=== PATIENT | male | born 2000 | race Caucasian/White ===

== ENCOUNTER 2022-04-26 12:58 | Emergency (ER) | payer MEDICAID, OTHER ==
[~2022-04-26] VITALS: Ht 177.8 cm; Wt 102.2 kg
[2022-04-26] MEDS ORDERED: ONDANSETRON HCL 4 MG/2 ML VIAL IV ONE (14:45)
[2022-04-26] MEDS ORDERED: MORPHINE SULFATE 4 MG/ML SYR/VIAL IV ONE (14:45)
[2022-04-26 16:00] VITALS: BP 110/55
[2022-04-26] MEDS ORDERED: HYDR-4902 PO (17:12)
== END 2022-04-26 17:38 | disposition home or self-care (01) ==
LOC: ER 12:58
DX: S39.012A Strain of muscle, fascia and tendon of lower back, initial encounter (principal); S70.02XA Contusion of left hip, initial encounter; Z79.899 Other long term (current) drug therapy; Z88.8 Allergy status to other drugs, medicaments and biological substances; V86.56XA Driver of dirt bike or motor/cross bike injured in nontraffic accident, initial encounter; Y93.89 Activity, other specified; Y92.89 Other specified places as the place of occurrence of the external cause; Y99.8 Other external cause status
CPT/HCPCS: 72131; 73700; 96374; 96375; 99284; J2270; J2405

== ENCOUNTER 2023-03-19 15:23 | Emergency (ER) | payer MEDICAID ==
[~2023-03-19] VITALS: Ht 177.8 cm; Wt 90.4 kg
[~2023-03-19 15:23] MED LIST: HYDR-4902 PO
[2023-03-19 16:58] VITALS: BP 132/90
[2023-03-19] MEDS ORDERED: HYDROcodone-ACET 10/325MG TAB PO ONE (17:30)
[2023-03-19] MEDS ORDERED: KETOROLAC TROMETH 60MG/2ML VIAL IM ONE (17:30)
[2023-03-19] MEDS ORDERED: HYDR-4902 PO ×3 (17:33→18:48)
[2023-03-19] MEDS ORDERED: IBUP-1455 PO ×2 (17:33)
[2023-03-19] MEDS ORDERED: IBUP-1456 PO (18:48)
== END 2023-03-19 18:01 | disposition home or self-care (01) ==
LOC: ER 15:23
DX: S50.01XA Contusion of right elbow, initial encounter (principal); F12.10 Cannabis abuse, uncomplicated; Z88.8 Allergy status to other drugs, medicaments and biological substances; V86.56XA Driver of dirt bike or motor/cross bike injured in nontraffic accident, initial encounter; Y93.55 Activity, bike riding; Y92.89 Other specified places as the place of occurrence of the external cause; Y99.8 Other external cause status
CPT/HCPCS: 73080; 96372; 99283; J1885

== ENCOUNTER 2023-05-18 04:38 | Emergency (ER) | payer MEDICAID ==
[~2023-05-18] VITALS: Ht 177.8 cm; Wt 93.7 kg
[~2023-05-18 04:38] MED LIST changes: +IBUP-1456 PO
[2023-05-18 05:26] LABS: Urine Bacteria NONE SEEN /hpf (None Seen); Urine Blood Negative /uL (Negative); Urine Clarity Clear (Clear); Urine Protein, UAD Negative (Negative); Urine Specific Gravity 1.014 (1.001-1.035); Urine Urobilinogen Normal (Negative); Urine WBC 1 /hpf (0 - 3); Urine pH 5.5 (5.0-8.0)
[2023-05-18 05:27] LABS: Basophils # (auto) 0 10 ^3/uL (0-0.2); Basophils % (auto) 0.5 % (0.0-2.0); Eosinophils # (auto) 0.1 10 ^3/uL (0-0.8); Eosinophils % (auto) 1.5 % (0.0-7.0); Hemoglobin 15.3 g/dL (13.5-17.5); Lymphocytes # (auto) 3.8 10 ^3/uL (0.4-5.4); Lymphocytes % (auto) 44.2 % (10.0-50.0); Mean Corpuscular Hemoglobin 30.5 pg (28.0-32.0); Mean Corpuscular Hgb Conc. 34.8 g/dL (32.0-36.0); Mean Corpuscular Volume 87.7 fL (80.0-100.0); Monocytes # (auto) 0.8 10 ^3/uL (0-1.3); Monocytes % (auto) 9.5 % (0.0-12.0); Neutrophils # (auto) 3.8 10 ^3/uL (1.6-8.6); Neutrophils % (auto) 44.3 % (37.0-80.0); Red Blood Cells 5.02 10^6/uL (4.5-5.90); Red Cell Distribution Width 13.1 % (11.8-14.3); White Blood Cell 8.6 10^3/uL (4.4-10.8)
[2023-05-18 05:29] LABS: Alanine Aminotransferase 19 U/L (7-40); Albumin 4.6 g/dL (3.2-4.8); Alkaline Phosphatase 75 U/L (46-116); Anion Gap 14.3 (5-15); Aspartate Aminotransferase 13 U/L (13-40); BUN/Creatinine Ratio 6.7 (10.0-20.0); Bilirubin, Total 0.3 mg/dL (0.2-1.0); Blood Urea Nitrogen 6 mg/dL (9-23); Calcium 9.4 mg/dL (8.7-10.4); Carbon Dioxide 17.7 mmol/L (20-30); Chloride 108 mmol/L (98-107); Glucose 103 mg/dL (74-106); Magnesium 1.9 mg/dL (1.6-2.6); Potassium 4.1 mmol/L (3.5-5.1); Sodium 140 mmol/L (136-145); Total Protein 7.3 g/dL (5.7-8.2)
[2023-05-18 05:31] LABS: Urine Color Straw (Yellow)
[2023-05-18] MEDS ORDERED: IBU600T PO (07:39)
[2023-05-18 08:21] VITALS: BP 112/82; TEMP 96.6
[2023-05-18 08:22] VITALS: PULSE 78; RESP 18; O2SAT 98
== END 2023-05-18 08:23 | disposition home or self-care (01) ==
LOC: ER 04:38
DX: M72.9 Fibroblastic disorder, unspecified (principal); F12.10 Cannabis abuse, uncomplicated; Z79.899 Other long term (current) drug therapy; Z88.6 Allergy status to analgesic agent
CPT/HCPCS: 36415; 71045; 71250; 80053; 81001; 83735; 84484; 85025; 93005